=== PATIENT | male | born 1990 | race Caucasian/White ===

== ENCOUNTER 2017-11-22 09:25 | Emergency (ER) | payer SELFPAY ==
[2017-11-22 09:49] VITALS: BP 141/85
--- NOTE | 2017-11-22 12:55 | Emergency Department Report ---
ED General Adult HPI - General Chief complaint: Abdominal Pain Stated complaint: LEFT FLANK PAIN Time Seen by Provider: 11/22/17 12:50 Source: patient Mode of arrival: Ambulatory Limitations: No Limitations - History of Present Illness Initial comments: Patient is a 27-year-old male past medical history of shoulder dislocation and marijuana abuse. Presents with back pain and shoulder pain since been going on for the last 3 months. States the pain is a 5 out of 10 moving and being in certain positions makes it worse resting makes it better. Patient states that he would like to get physician to get a hold of his chronic pain. She denies having any headache any nausea or vomiting any fever or any recent trauma to the body. Severity scale (0 -10): 5 - Related Data Previous Rx's Medication Instructions Recorded Last Taken Type HYDROcodone/APAP 5-325 [Davey 1 each PO Q6HR PRN #20 tablet 04/15/15 Unknown Rx 5/325] Ibuprofen [Motrin 600 MG tab] 800 mg PO Q8H PRN #20 tablet 05/09/15 Unknown Rx Acetaminophen 500 mg PO Q6H #30 tablet 11/22/17 Unknown Rx Diclofenac Sodium [Voltaren] 100 gm TP Q6H #1 gel..gram. 11/22/17 Unknown Rx Allergies Allergy/AdvReac Type Severity Reaction Status Date / Time No Known Allergies Allergy Unverified 04/15/15 15:47 ED Review of Systems ROS: Stated complaint: LEFT FLANK PAIN Other details as noted in HPI Constitutional: denies: chills, fever Eyes: denies: eye pain, eye discharge, vision change ENT: denies: ear pain, throat pain Respiratory: denies: cough, shortness of breath, wheezing Cardiovascular: denies: chest pain, palpitations Endocrine: no symptoms reported Gastrointestinal: denies: abdominal pain, nausea, diarrhea Genitourinary: denies: urgency, dysuria Musculoskeletal: back pain. denies: joint swelling, arthralgia Skin: denies: rash, lesions Neurological: denies: headache, weakness, paresthesias Psychiatric: denies: anxiety, depression Hematological/Lymphatic: denies: easy bleeding, easy bruising ED Past Medical Hx - Past Medical History Hx Asthma: Yes - Surgical History Past Surgical History?: No - Social History Smoking Status: Current Every Day Smoker Substance Use Type: Marijuana - Medications Home Medications: Home Medications Medication Instructions Recorded Confirmed Last Taken Type HYDROcodone/APAP 5-325 [Davey 1 each PO Q6HR PRN #20 tablet 04/15/15 Unknown Rx 5/325] Ibuprofen [Motrin 600 MG tab] 800 mg PO Q8H PRN #20 tablet 05/09/15 Unknown Rx Acetaminophen 500 mg PO Q6H #30 tablet 11/22/17 Unknown Rx Diclofenac Sodium [Voltaren] 100 gm TP Q6H #1 gel..gram. 11/22/17 Unknown Rx ED Physical Exam - General Limitations: No Limitations General appearance: alert, in no apparent distress - Head Head exam: Present: atraumatic, normocephalic - Eye Eye exam: Present: normal appearance - ENT ENT exam: Present: mucous membranes moist - Neck Neck exam: Present: normal inspection - Respiratory Respiratory exam: Present: normal lung sounds bilaterally. Absent: respiratory distress - Cardiovascular Cardiovascular Exam: Present: regular rate, normal rhythm. Absent: systolic murmur, diastolic murmur, rubs, gallop - GI/Abdominal GI/Abdominal exam: Present: soft, normal bowel sounds - Rectal Rectal exam: Present: deferred - Extremities Exam Extremities exam: Present: normal inspection - Back Exam Back exam: Present: normal inspection - Neurological Exam Neurological exam: Present: alert, oriented X3 - Psychiatric Psychiatric exam: Present: normal affect, normal mood - Skin Skin exam: Present: warm, dry, intact, normal color. Absent: rash ED Course Vital Signs 11/22/17 09:48 Temperature 97.8 F Pulse Rate 88 Respiratory 18 Rate Blood Pressure 141/85 [Right] ED Medical Decision Making - Medical Decision Making Cdx: Myalgia 2/2 chronic pain ddx: Lumbar sacral strain, marijuana abuse I will send patient home with voltaren cream and tylenol. I will also send pt home with primary care referral discussed plan with patient patient agrees with plan and additional verbal discharge instructions were given. Critical care attestation.: If time is entered above; I have spent that time in minutes in the direct care of this critically ill patient, excluding procedure time. ED Disposition Clinical Impression: Encounter for medical assessment, Marijuana abuse in remission Lower back pain Qualifiers: Chronicity: chronic Back pain laterality: unspecified Sciatica presence: unspecified whether sciatica present Qualified Code(s): M54.5 - Low back pain Shoulder pain Qualifiers: Chronicity: chronic Laterality: bilateral Qualified Code(s): M25.511 - Pain in right shoulder Disposition: DC-01 TO HOME OR SELFCARE Is pt being admited?: No Does the pt Need Aspirin: No Condition: Stable Instructions: Low Back Strain (ED), Arthralgia (ED) Prescriptions: Acetaminophen 500 mg PO Q6H #30 tablet Diclofenac Sodium [Voltaren] 100 gm TP Q6H #1 gel..gram. Referrals: SAILAJA EMERY MD [Staff Physician] - 3-5 Days
== END 2017-11-22 13:04 | disposition home or self-care (01) ==
LOC: ED 09:25
DX: M54.5 Low back pain (principal); M25.511 Pain in right shoulder; F12.11 Cannabis abuse, in remission; F17.200 Nicotine dependence, unspecified, uncomplicated
CPT/HCPCS: 99282

== ENCOUNTER 2020-08-21 06:40 | Emergency (ER) | payer SELFPAY | END 2020-08-21 08:13 | disposition left against medical advice (07) | LOC: ED 06:40 | DX: R10.9 Unspecified abdominal pain (principal); Z53.21 Procedure and treatment not carried out due to patient leaving prior to being seen by health care provider ==

== ENCOUNTER 2021-08-17 13:51 | Emergency (ER) | payer SELFPAY ==
--- NOTE | 2021-08-17 14:45 | Emergency Department Report ---
ED Abdominal Pain HPI - General Chief Complaint: Abdominal Pain Stated Complaint: ADB PAIN PUI?: No Time Seen by Provider: 08/17/21 14:43 Source: patient, RN notes reviewed, old records reviewed Mode of arrival: Stretcher Limitations: No Limitations - History of Present Illness Initial Comments: The patient is a 30-year-old gentleman. He is not known to myself previously. His past medical history includes chronic cannabis use. He presents to the ER with a complaint of diffuse abdominal cramping, nausea, vomiting, malaise and fatigue. Symptoms occasionally get better when he takes a hot bath or hot shower. He has never had pain like this before. He denies testicular pain and urinary symptoms. He also endorses chest tightness associated with nausea and vomiting. MD Complaint: abdominal pain -: Gradual, hour(s) Location: diffuse Quality: cramping Consistency: constant Improves With: nothing Worsens With: eating, vomiting Associated Symptoms: nausea, vomiting - Related Data Previous Rx's Medication Instructions Recorded Last Taken Type Acetaminophen 500 mg PO Q6H #30 tablet 11/22/17 Unknown Rx Acetaminophen [Non-Aspirin Extra 500 mg PO Q6HR PRN #30 tablet 08/17/21 Unknown Rx Strength] Yadira Root [Ydaira] 250 mg PO QID PRN #30 capsule 08/17/21 Unknown Rx Metoclopramide [Reglan] 10 mg PO QID PRN #30 tablet 08/17/21 Unknown Rx Promethazine [Phenergan SUPPOS] 50 mg OK Q6H PRN #15 supp.rect 08/17/21 Unknown Rx Allergies Allergy/AdvReac Type Severity Reaction Status Date / Time No Known Allergies Allergy Verified 08/17/21 14:12 ED Review of Systems ROS: Stated complaint: ADB PAIN Other details as noted in HPI Constitutional: malaise. denies: fever Eyes: denies: eye discharge ENT: denies: epistaxis Respiratory: denies: cough Cardiovascular: denies: syncope Gastrointestinal: abdominal pain, nausea, vomiting Genitourinary: denies: dysuria Musculoskeletal: back pain Neurological: weakness Psychiatric: anxiety ED Past Medical Hx - Past Medical History Hx Asthma: Yes - Social History Smoking Status: Current Every Day Smoker Substance Use Type: Alcohol, Marijuana - Medications Home Medications: Home Medications Medication Instructions Recorded Confirmed Last Taken Type Acetaminophen 500 mg PO Q6H #30 tablet 11/22/17 Unknown Rx Acetaminophen [Non-Aspirin Extra 500 mg PO Q6HR PRN #30 tablet 08/17/21 Unknown Rx Strength] Yadira Root [Yadira] 250 mg PO QID PRN #30 capsule 08/17/21 Unknown Rx Metoclopramide [Reglan] 10 mg PO QID PRN #30 tablet 08/17/21 Unknown Rx Promethazine [Phenergan SUPPOS] 50 mg OK Q6H PRN #15 supp.rect 08/17/21 Unknown Rx ED Physical Exam - General Limitations: Physical Limitation General appearance: alert, anxious, in distress - Head Head exam: Present: atraumatic, normocephalic - Eye Eye exam: Present: normal appearance, EOMI. Absent: nystagmus - ENT ENT exam: Present: normal exam, normal orophraynx, mucous membranes moist, normal external ear exam - Neck Neck exam: Present: normal inspection, full ROM. Absent: tenderness, meningismus - Respiratory Respiratory exam: Present: normal lung sounds bilaterally. Absent: respiratory distress, wheezes, rales, rhonchi, stridor, chest wall tenderness - Cardiovascular Cardiovascular Exam: Present: normal rhythm, bradycardia, normal heart sounds. Absent: tachycardia, irregular rhythm, systolic murmur, diastolic murmur, rubs, gallop - GI/Abdominal GI/Abdominal exam: Present: soft, tenderness. Absent: distended, guarding, rebound, rigid, pulsatile mass - Rectal Rectal exam: Present: deferred - Extremities Exam Extremities exam: Present: normal inspection, full ROM, other (2+ pulses noted in the bilateral upper and lower extremities. There is no palpable cord. negative Homans sign. Muscular compartments are soft. The pelvis is stable.). Absent: pedal edema, calf tenderness - Back Exam Back exam: Present: normal inspection, full ROM. Absent: tenderness, CVA tenderness (R), CVA tenderness (L), paraspinal tenderness, vertebral tenderness - Neurological Exam Neurological exam: Present: alert, oriented X3, other (No facial droop. Tongue midline. Extraocular movements intact bilaterally. Facial sensation intact to light touch in V1, V2, V3 distribution bilaterally. 5 and a 5 strength in 4 extremities. Sensation intact to light touch in 4 extremities.). Absent: motor sensory deficit - Psychiatric Psychiatric exam: Present: anxious - Skin Skin exam: Present: warm, dry, intact, normal color. Absent: rash ED Course Vital Signs 08/17/21 08/17/21 08/17/21 13:59 14:21 14:31 Temperature 97.3 F L Pulse Rate 58 L Respiratory 20 Rate Blood Pressure 120/74 116/78 O2 Sat by Pulse 96 100 98 Oximetry 08/17/21 08/17/21 08/17/21 14:45 15:01 15:15 Temperature Pulse Rate Respiratory Rate Blood Pressure 116/78 99/73 99/73 O2 Sat by Pulse 98 100 100 Oximetry 08/17/21 08/17/21 08/17/21 15:31 15:45 16:01 Temperature Pulse Rate Respiratory 14 Rate Blood Pressure 104/77 104/77 101/67 O2 Sat by Pulse 99 100 97 Oximetry 08/17/21 08/17/21 08/17/21 16:15 16:31 16:45 Temperature Pulse Rate Respiratory 13 24 Rate Blood Pressure 104/77 107/74 107/74 O2 Sat by Pulse 97 98 99 Oximetry 08/17/21 08/17/21 08/17/21 17:01 17:15 17:31 Temperature Pulse Rate Respiratory Rate Blood Pressure 107/70 107/74 120/71 O2 Sat by Pulse 99 99 98 Oximetry 08/17/21 08/17/21 08/17/21 17:45 18:01 18:15 Temperature Pulse Rate Respiratory Rate Blood Pressure 120/71 108/66 120/71 O2 Sat by Pulse 98 99 99 Oximetry 08/17/21 08/17/21 08/17/21 18:31 18:45 19:01 Temperature Pulse Rate Respiratory Rate Blood Pressure 108/65 108/65 101/66 O2 Sat by Pulse 99 99 98 Oximetry 08/17/21 08/17/21 08/17/21 19:15 19:31 19:45 Temperature Pulse Rate Respiratory Rate Blood Pressure 101/66 99/64 99/64 O2 Sat by Pulse 100 99 99 Oximetry 08/17/21 20:01 Temperature Pulse Rate Respiratory Rate Blood Pressure 98/63 O2 Sat by Pulse 100 Oximetry - Reevaluation(s) Reevaluation #1: 08/17/21 15:59 Differential diagnosis, including but not limited to: Colitis, diverticulitis, pancreatitis, renal colic, perforated viscus, obstruction, cannabinoid hyperemesis syndrome Assessment and plan: 30-year-old gentleman with diffuse abdominal pain, nausea and vomiting. When I walked into the patient's room to examine him, he smells strongly of marijuana and cannabis. I suspect cannabinoid hyperemesis syndrome as a chief/most likely diagnosis. Laboratory studies are reviewed and appreciated. Leukocytosis is likely a stress reaction. Laboratory studies sig nificant for mild hypokalemia, and acidosis, likely secondary to dehydration. During my history and physical, the patient drank water without vomiting. He denies testicular pain and urinary symptoms. We will treat his symptoms aggressively, he is counseled to discontinue cannabis and marijuana consumption, I have ordered a CT scan of the abdomen pelvis. Reassess after initial data points. I discussed this plan of care with the patient. He is agreeable to the plan of care. 08/17/21 20:54 Patient evaluated multiple times. He feels markedly improved after initial therapeutic interventions. Laboratory studies are reviewed and appreciated. CT scan of the abdomen pelvis negative for acute findings. Patient not vomiting, belly soft on repeat exam, tolerating liquid feeds. This is most likely cannabinoid hyperemesis syndrome. Extensive discussion had with patient and significant other. Discussed need to stop cannabis consumption. Patient articulates understanding. He would like to be discharged Return precautions reviewed. All questions answered. ED Medical Decision Making - Lab Data Result diagrams: 08/17/21 14:58 08/17/21 18:08 Vital Signs 08/17/21 13:59 Temperature 97.3 F L Pulse Rate 58 L Respiratory 20 Rate Blood Pressure 120/74 O2 Sat by Pulse 96 Oximetry Lab Results 08/17/21 08/17/21 08/17/21 Range/Units 14:58 14:58 14:58 WBC 14.8 H (4.5-11.0) K/mm3 RBC 5.49 H (3.65-5.03) M/mm3 Hgb 16.0 H (11.8-15.2) gm/dl Hct 47.0 H (35.5-45.6) % MCV 86 (84-94) fl MCH 29 (28-32) pg MCHC 34 (32-34) % RDW 14.0 (13.2-15.2) % Plt Count 289 (140-440) K/mm3 Lymph % (Auto) 7.8 L (13.4-35.0) % Lander % (Auto) 1.7 (0.0-7.3) % Eos % (Auto) 0.1 (0.0-4.3) % Baso % (Auto) 0.8 (0.0-1.8) % Lymph # (Auto) 1.2 (1.2-5.4) K/mm3 Lander # (Auto) 0.3 (0.0-0.8) K/mm3 Eos # (Auto) 0.0 (0.0-0.4) K/mm3 Baso # (Auto) 0.1 (0.0-0.1) K/mm3 Seg Neutrophils % 89.6 H (40.0-70.0) % Seg Neutrophils # 13.3 H (1.8-7.7) K/mm3 PT 14.3 (12.2-14.9) Sec. INR 1.00 (0.87-1.13) Sodium 139 (137-145) mmol/L Potassium 3.4 L (3.6-5.0) mmol/L Chloride 106.4 (98-107) mmol/L Carbon Dioxide 17 L (22-30) mmol/L Anion Gap 19 mmol/L BUN 12 (9-20) mg/dL Creatinine 0.7 L (0.8-1.3) mg/dL Estimated GFR > 60 ml/min BUN/Creatinine Ratio 17 % Glucose 173 H (75-100) mg/dL Calcium 9.6 (8.4-10.2) mg/dL Total Bilirubin 0.40 (0.1-1.2) mg/dL Direct Bilirubin < 0.2 (0-0.2) mg/dL Indirect Bilirubin 0.2 mg/dL AST 16 (5-40) units/L ALT 25 (7-56) units/L Alkaline Phosphatase 98 (35-129) units/L Total Protein 7.5 (6.3-8.2) g/dL Albumin 4.3 (3.9-5) g/dL Albumin/Globulin Ratio 1.3 % Lipase 18 (13-60) units/L - EKG Data -: EKG Interpreted by Tx EKG shows normal: sinus rhythm Rate: bradycardia - EKG Data When compared to previous EKG there are: previous EKG unavailable 08/17/21 15:59 The EKG is interpreted at 15: 20 Sinus rhythm, rate 90 bpm. High left ventricular voltage. Normal axis. Normal P wave axis. QTC 502 ms. Motion artifact. Abnormal EKG. Not a STEMI. - Radiology Data Radiology results: pending, report reviewed, image reviewed CT ABDOMEN AND PELVIS WITH CONTRAST INDICATION / CLINICAL INFORMATION: Acute abdominal pain, nausea and vomiting. TECHNIQUE: Axial CT images were obtained through the abdomen and pelvis after 100 cc of Omnipaque [address] scans at this location are performed using CT dose reduction for ALARA by means of automated exposure control. COMPARISON: None available. FINDINGS: LOWER CHEST: No significant abnormality. AORTA / ARTERIES: No significant abnormality. IVC / VEINS: No significant abnormality. LYMPH NODES: No significant adenopathy. COLON: No significant abnormality. APPENDIX: No significant abnormality. STOMACH / SMALL BOWEL: No significant abnormality. PERITONEUM: No free fluid. No free air. No fluid collection. LIVER: No sig nificant abnormality. GALLBLADDER: No significant abnormality. BILE DUCTS: No significant abnormality. PANCREAS: No significant abnormality. SPLEEN: No significant abnormality. ADRENALS: No significant abnormality. RIGHT KIDNEY / URETER: No significant abnormality. LEFT KIDNEY / URETER: No significant abnormality. URINARY BLADDER: No significant abnormality. REPRODUCTIVE ORGANS: No significant abnormality. SKELETAL SYSTEM: No significant abnormality. ADDITIONAL FINDINGS: None. IMPRESSION: 1. No CT findings to explain symptomatology. Signer Name: Chidi Castillo DO Signed: 08/17/2021 7:32 PM Workstation Name: [id number] Critical care attestation.: If time is entered above; I have spent that time in minutes in the direct care of this critically ill patient, excluding procedure time. ED Disposition Clinical Impression: Acute abdominal pain, Marijuana use Disposition: 01 HOME / SELF CARE / HOMELESS Is pt being admited?: No Does the pt Need Aspirin: No Condition: Good Instructions: Abdominal Pain, Adult Additional Instructions: As we discussed, we suspect that the patient has cannabinoid hyperemesis syndrome. Treatment is to discontinue marijuana/cannabis consumption. Symptoms of cannabinoid hyperemesis syndrome may persist for up to 4 to 6 weeks. Please take the nausea medications and pain medications as needed and directed. Avoid Motrin, ibuprofen, Naprosyn, Aleve, tobacco, smoke and alcohol products. Avoid consumption of heavy and spicy foods. Do not take metformin medication for the next 2 days, if patient takes this medication. Patient may take the Reglan, and yadira tablets orally as needed for nausea and vomiting. Use the Phenergan suppository for intractable nausea and vomiting not relieved by the aforementioned medications. Take the acetaminophen as needed for physical pain. Patient may also take a hot bath and/or hot shower as often as as needed for relief of symptoms, and may also apply Tabasco/hot sauce to his anterior abdominal wall for relief of symptoms. We recommend follow-up with a primary care doctor and/or GI specialist within the next 7 to 10 days for repeat checkup and evaluation. Please return to the emergency room right away with new pain, worsened pain, migration of pain, projectile vomiting, change in mental status, confusion, inability to tolerate liquid feeds, new, worsened or different symptoms not present on the initial emergency room evaluation. Referrals: CAROL FLYNN MD [Primary Care Provider] - 3-5 Days [facility] [Provider Group] - 3-5 Days Forms: Work/School Release Form(ED)
[2021-08-17] MEDS ORDERED: SODIUM CHLORIDE 0.9% 1000 ML 1,000 ML IV ONE (14:53)
[2021-08-17] MEDS ORDERED: HYDROmorphone 1 MG/1 ML INJ IV ONE (14:53)
[2021-08-17] MEDS ORDERED: LACTATED RINGERS 1,000 ML IV ONE ×2 (14:53→15:56)
[2021-08-17] MEDS ORDERED: METOCLOPRAMIDE 10 MG/2 ML INJ IV ONE (14:53)
[2021-08-17 15:12] LABS: Basophils # (Auto) 0.1 K/mm3 (0.0-0.1); Basophils % (Auto) 0.8 % (0.0-1.8); Eosinophils % (Auto) 0.1 % (0.0-4.3); Lymphocytes # (Auto) 1.2 K/mm3 (1.2-5.4); Lymphocytes % (Auto) 7.8 % (13.4-35.0); Mean Corpuscular HGB Conc 34 % (32-34); Mean Corpuscular Volume 86 fl (84-94); Monocytes # (Auto) 0.3 K/mm3 (0.0-0.8); Monocytes % (Auto) 1.7 % (0.0-7.3); Platelet Count 289 K/mm3 (140-440); Red Blood Count 5.49 M/mm3 (3.65-5.03)
[2021-08-17 15:36] LABS: Alanine Aminotransferase 25 units/L (7-56); Albumin 4.3 g/dL (3.9-5); Blood Urea Nitrogen 12 mg/dL (9-20); Calcium 9.6 mg/dL (8.4-10.2); Hemolysis Index 26
[2021-08-17 15:37] LABS: BUN/Creatinine Ratio 17; Bilirubin,Direct < 0.2 mg/dL (0-0.2)
[2021-08-17] MEDS: POTASSIUM CHLORIDE 10 MEQ 10 MEQ/100 ML BAG IV SCH ×2 (16:44→17:51)
[2021-08-17 18:44] LABS: BUN/Creatinine Ratio 13; Blood Urea Nitrogen 10 mg/dL (9-20); Calcium 9.1 mg/dL (8.4-10.2); Hemolysis Index 13
[2021-08-17 18:54] LABS: Bacteria,Urine 1+ /HPF (Negative); Bilirubin,Urine NEG (Negative); Blood,Urine NEG (Negative); Color,Urine Yellow (Yellow); Mucus,Urine FEW /HPF; Protein,Urine <15 mg/dL mg/dL (Negative); Urobilinogen,Urine < 2.0 mg/dL (<2.0)
[2021-08-17 18:55] LABS: Amphetamine Screen,Urine Negative; Benzodiazepines Screen,Urine Negative; Cocaine Screen,Urine Negative; Methadone Screen,Urine Negative; Opiate Screen,Urine Negative
[2021-08-17 19:26] LABS: Cannabinoid Screen,Urine Positive
[2021-08-17 20:08] VITALS: BP 98/63
--- NOTE | 2021-08-17 20:36 | Cat Scan Report ---
CT ABDOMEN AND PELVIS WITH CONTRAST INDICATION / CLINICAL INFORMATION: Acute abdominal pain, nausea and vomiting. TECHNIQUE: Axial CT images were obtained through the abdomen and pelvis after 100 cc of Omnipaque [address] scans at this location are performed using CT dose reduction for ALARA by means of automated exposure control. COMPARISON: None available. FINDINGS: LOWER CHEST: No significant abnormality. AORTA / ARTERIES: No significant abnormality. IVC / VEINS: No significant abnormality. LYMPH NODES: No significant adenopathy. COLON: No significant abnormality. APPENDIX: No significant abnormality. STOMACH / SMALL BOWEL: No significant abnormality. PERITONEUM: No free fluid. No free air. No fluid collection. LIVER: No significant abnormality. GALLBLADDER: No significant abnormality. BILE DUCTS: No significant abnormality. PANCREAS: No significant abnormality. SPLEEN: No significant abnormality. ADRENALS: No significant abnormality. RIGHT KIDNEY / URETER: No significant abnormality. LEFT KIDNEY / URETER: No significant abnormality. URINARY BLADDER: No significant abnormality. REPRODUCTIVE ORGANS: No significant abnormality. SKELETAL SYSTEM: No significant abnormality. ADDITIONAL FINDINGS: None. IMPRESSION: 1. No CT findings to explain symptomatology. Signer Name: Chidi Castillo DO Signed: 08/17/2021 8:32 PM Workstation Name: [id number]
--- NOTE | 2021-08-19 11:38 | Electrocardiograph Report ---
[facility] Test Date: 2021-08-17 Test Time: 15:20:24 Pat Name: CASEY SALEH Department: Room: Gender: M [employer] Director: NURSE : 1990 Requested By: EMELIA MILLIGAN Order Number: [id number] Reading MD: Matheus Kunz Measurements Intervals [place] Rate: 90 P: 85 IL: 147 QRS: 86 QRSD: 104 T: 67 QT: 409 QTc: 502 Interpretive Statements Sinus rhythm ST elev, probable normal early repol pattern Prolonged QT interval No previous ECG available for comparison Electronically Signed On 08-19-2021 11:38:24 EST by Matheus Kunz
== END 2021-08-17 21:19 | disposition home or self-care (01) ==
LOC: ED 13:51
DX: R10.84 Generalized abdominal pain (principal); E87.6 Hypokalemia; R11.2 Nausea with vomiting, unspecified; F12.90 Cannabis use, unspecified, uncomplicated; J45.909 Unspecified asthma, uncomplicated; F17.200 Nicotine dependence, unspecified, uncomplicated; Z79.899 Other long term (current) drug therapy
CPT/HCPCS: 36415; 74177; 80048; 80076; 80307; 81001; 83690; 85025; 85610; 93005; 96361; 96365; 96375; 99284; J1170; J2765; J3480; J7030; J7120; Q9967